=== PATIENT | male | born 1940 | race Caucasian/White ===

== ENCOUNTER 2016-08-03 18:04 | Outpatient (CLI) | END 2016-08-03 18:05 | LOC: AMBL 18:04 | PROVIDERS: ATTEND Internal Medicine | DX: R06.02 Shortness of breath (principal); R53.1 Weakness; R53.83 Other fatigue; S30.810A Abrasion of lower back and pelvis, initial encounter; W19.XXXA Unspecified fall, initial encounter; Z99.81 Dependence on supplemental oxygen; Z96.649 Presence of unspecified artificial hip joint ==

== ENCOUNTER 2017-07-07 15:57 | Outpatient (CLI) | END 2017-07-07 15:58 | disposition short-term general hospital (02) | LOC: AMBL 15:57 | PROVIDERS: ATTEND Emergency Medicine | DX: R53.1 Weakness (principal); R50.9 Fever, unspecified; R11.2 Nausea with vomiting, unspecified; I10 Essential (primary) hypertension; J44.9 Chronic obstructive pulmonary disease, unspecified; Z99.81 Dependence on supplemental oxygen; Z86.73 Personal history of transient ischemic attack (TIA), and cerebral infarction without residual deficits ==

== ENCOUNTER 2017-07-23 15:08 | Outpatient (CLI) | END 2017-07-23 15:09 | disposition home or self-care (01) | LOC: AMBL 15:08 | PROVIDERS: ATTEND Emergency Medicine | DX: S29.9XXA Unspecified injury of thorax, initial encounter (principal); W19.XXXA Unspecified fall, initial encounter ==

== ENCOUNTER 2018-10-16 18:51 | Outpatient (CLI) | END 2018-10-16 18:52 | disposition home or self-care (01) | LOC: AMBL 18:51 | PROVIDERS: ATTEND Internal Medicine | DX: R06.03 Acute respiratory distress (principal); I49.3 Ventricular premature depolarization; Z99.81 Dependence on supplemental oxygen ==

== ENCOUNTER 2018-11-16 13:34 | Outpatient (CLI) | END 2018-11-16 13:55 | disposition short-term general hospital (02) | LOC: AMBL 13:34 | PROVIDERS: ATTEND Emergency Medicine | DX: R05 Cough (principal); R09.89 Other specified symptoms and signs involving the circulatory and respiratory systems; Z99.81 Dependence on supplemental oxygen; R06.2 Wheezing; R06.9 Unspecified abnormalities of breathing ==